=== PATIENT | male | born 1940 | race African-American/Black ===

== ENCOUNTER 2019-02-22 15:19 | Inpatient (IN) | payer OTHER ==
[~2019-02-22] VITALS: Ht 167.6 cm; Wt 61.7 kg
[2019-02-22] MEDS ORDERED: VANCOMYCIN 1 G PREMIX 200 ML IV ONE (15:45)
[2019-02-22] MEDS ORDERED: PIPERACILLIN/TAZ 3.375G PREMIX 50 ML IV ONE (15:45)
[2019-02-22] MEDS ORDERED: SODIUM CHLORIDE 0.9% 1000ML BAG (SEPSIS BOLUS) IV ONE (15:45)
[2019-02-22 16:27] LABS: HEMATOCRIT. 25.2 % (42.0-52.0); HEMOGLOBIN. 8.3 g/dL (14.0-18.0); MEAN CORPUSCULAR HEMOGLOBIN 34.3 pg (28.0-32.0); MEAN CORPUSCULAR VOLUME 103.9 fL (80.0-94.0); MEAN PLATELET VOLUME 8.1 fl (7.4-10.4); PLATELET 263 x1000/uL (130-400); RED BLOOD CELL COUNT 2.43 mill/uL (4.7-6.1)
[2019-02-22 16:32] LABS: CHLORIDE 109 mEq/L (98-107)
[2019-02-22 16:39] LABS: PARTIAL THROMBOPLASTIN TIME 26.4 sec (23.4-31.0); PROTHROMBIN TIME 10.7 sec (9.6-11.0)
[2019-02-22] MEDS ORDERED: ENOXAPARIN 40MG/0.4ML SYR SUBCUT ONE (17:45)
[2019-02-22] MEDS ORDERED: ASPIRIN 325MG EC TABLET PO ONE (17:45)
[2019-02-22 18:20] LABS: PLATELET ESTIMATE NORMAL
[2019-02-22] MEDS ORDERED: ONDANSETRON HCL 4MG/2ML INJ IV PRN (19:15)
[2019-02-22] MEDS ORDERED: ACETAMINOPHEN 325MG TABLET PO PRN (19:15)
[2019-02-22] MEDS ORDERED: CLONIDINE 0.1MG TABLET PO PRN (19:15)
[2019-02-22] MEDS ORDERED: NA PHOS,M-B/NA PHOS,DI-BA ENEMA 118ML PR PRN (19:15)
[2019-02-22] MEDS ORDERED: MORPHINE SULFATE 2 MG/ML CPJ (NOT FOR IM USE) IV PRN (19:15)
[2019-02-22] MEDS ORDERED: MAGNESIUM/ALUMINUM HYDROXIDE/SIMETHICONE 30ML UDC PO PRN (19:15)
[2019-02-22] MEDS ORDERED: GUAIFENESIN 200MG/10ML SUGAR FREE UDC PO PRN (19:15)
[2019-02-22] MEDS ORDERED: ENOXAPARIN 40MG/0.4ML SYR SUBCUT SCH (19:15)
[2019-02-22] MEDS ORDERED: TRAMADOL 50MG TABLET PO PRN (19:15)
[2019-02-22] MEDS ORDERED: DOCUSATE SODIUM 100MG CAPSULE PO PRN (19:15)
[2019-02-22] MEDS ORDERED: PIPERACILLIN/TAZ 3.375G PREMIX 50 ML IV SCH (19:15)
[2019-02-22 20:36] LABS: FOLIC ACID (FOLATE) SERUM 11.9 ng/mL (>5.38)
[2019-02-22 22:30] VITALS: BP 118/68
[2019-02-22 22:52] VITALS: BP 118/68
[2019-02-22] MEDS: SODIUM CHLORIDE 0.9% 1,000 ML IV SCH (23:38)
[2019-02-22] MEDS: ZOLPIDEM TARTRATE 5MG TABLET PO PRN (23:54)
[2019-02-22] MEDS: PIPERACILLIN/TAZOBACTAM 2.25 G in DEXTROSE 5% WATER 50 ML IV SCH (23:54)
[2019-02-23] VITALS: BP 136/61
[2019-02-23] MEDS: VANCOMYCIN 750 MG PREMIX 150 ML IV SCH ×2 (01:35→18:12)
[2019-02-23 02:05] LABS: CREATINE KINASE 303 IU/L (39-308)
[2019-02-23 04:00] VITALS: BP 140/57
[2019-02-23 06:40] LABS: CREATINE KINASE 355 IU/L (39-308)
[2019-02-23] MEDS: ENOXAPARIN 30MG/0.3ML SYR SUBCUT SCH (08:06)
[2019-02-23] MEDS: FAMOTIDINE 20MG TABLET PO SCH (08:07)
[2019-02-23] MEDS: ASCORBIC ACID 500 MG TABLET PO SCH ×2 (08:07→20:21)
[2019-02-23] MEDS: ASPIRIN 81MG EC TABLET PO SCH (08:07)
[2019-02-23] MEDS: ZINC SULFATE 220 MG ( 50 ) CAPSULE PO SCH (08:07)
[2019-02-23] MEDS: PIPERACILLIN/TAZOBACTAM 2.25 G in DEXTROSE 5% WATER 50 ML IV SCH ×3 (08:07→23:37)
[2019-02-23 08:08] VITALS: BP 113/73
[2019-02-23 11:37] VITALS: BP 130/42
[2019-02-23 15:36] VITALS: BP 90/44
[2019-02-23] MEDS: SODIUM CHLORIDE 0.9% 1,000 ML IV SCH (15:59)
[2019-02-23 20:00] VITALS: BP 120/50
[2019-02-24] VITALS (7 sets, daily range): BP systolic 102–151; BP diastolic 43–69
[2019-02-24] MEDS: SODIUM CHLORIDE 0.9% 1,000 ML IV SCH ×2 (01:25→09:03)
[2019-02-24] MEDS: ASPIRIN 81MG EC TABLET PO SCH (08:14)
[2019-02-24] MEDS: FAMOTIDINE 20MG TABLET PO SCH (08:14)
[2019-02-24] MEDS: ENOXAPARIN 30MG/0.3ML SYR SUBCUT SCH (08:14)
[2019-02-24] MEDS: PIPERACILLIN/TAZOBACTAM 2.25 G in DEXTROSE 5% WATER 50 ML IV SCH ×3 (08:14→23:14)
[2019-02-24] MEDS: ZINC SULFATE 220 MG ( 50 ) CAPSULE PO SCH (08:14)
[2019-02-24] MEDS: ASCORBIC ACID 500 MG TABLET PO SCH ×2 (08:14→20:06)
[2019-02-24] MEDS: VANCOMYCIN 1 G PREMIX 200 ML IV SCH (11:31)
[2019-02-24] MEDS: ZOLPIDEM TARTRATE 5MG TABLET PO PRN (20:06)
[2019-02-25] VITALS: BP 158/77
[2019-02-25 04:00] VITALS: BP 113/60
[2019-02-25] MEDS: SODIUM CHLORIDE 0.9% 1,000 ML IV SCH ×2 (04:17→16:27)
[2019-02-25] MEDS: VANCOMYCIN 1 G PREMIX 200 ML IV SCH (05:33)
[2019-02-25 08:00] VITALS: BP 135/50
[2019-02-25] MEDS: PIPERACILLIN/TAZOBACTAM 2.25 G in DEXTROSE 5% WATER 50 ML IV SCH ×2 (08:48→16:27)
[2019-02-25 09:53] LABS: INR 1.1; PARTIAL THROMBOPLASTIN TIME 36.4 sec (23.4-31.0); PROTHROMBIN TIME 11.5 sec (9.6-11.0)
[2019-02-25] MEDS: FAMOTIDINE 20MG TABLET PO SCH (10:28)
[2019-02-25] MEDS: ASCORBIC ACID 500 MG TABLET PO SCH ×2 (10:28→20:22)
[2019-02-25] MEDS: ASPIRIN 81MG EC TABLET PO SCH (10:28)
[2019-02-25] MEDS: ENOXAPARIN 30MG/0.3ML SYR SUBCUT SCH (10:29)
[2019-02-25] MEDS: ZINC SULFATE 220 MG ( 50 ) CAPSULE PO SCH (10:31)
[2019-02-25 12:00] VITALS: BP 128/50
[2019-02-25 12:21] LABS: HEMATOCRIT 22.2 % (42.0-52.0); HEMOGLOBIN 7.2 g/dL (14.0-18.0)
[2019-02-25 16:00] VITALS: BP 147/57
[2019-02-25 16:12] LABS: CREATINE KINASE 224 IU/L (39-308)
[2019-02-25] MEDS: HALOPERIDOL LACTATE 5MG/ML VIAL IM PRN (16:20)
[2019-02-25 20:00] VITALS: BP 155/73
[2019-02-25] MEDS: ZOLPIDEM TARTRATE 5MG TABLET PO PRN (20:22)
[2019-02-26] VITALS (7 sets, daily range): BP systolic 96–155; BP diastolic 46–64
[2019-02-26] MEDS: PIPERACILLIN/TAZOBACTAM 2.25 G in DEXTROSE 5% WATER 50 ML IV SCH ×3 (00:42→15:54)
[2019-02-26] MEDS: VANCOMYCIN 1 G PREMIX 200 ML IV SCH ×2 (01:08→18:51)
[2019-02-26] MEDS: SODIUM CHLORIDE 0.9% 1,000 ML IV SCH ×2 (05:50→21:17)
[2019-02-26 06:41] LABS: BASOPHILS % 2.2 % (0.0-2.0); EOSINOPHILS % 0.5 % (0.0-5.0); HEMATOCRIT. 24.2 % (42.0-52.0); HEMOGLOBIN. 7.9 g/dL (14.0-18.0); LYMPHOCYTES % 12.9 % (20.0-50.0); MEAN CORPUSCULAR HEMOGLOBIN 34.2 pg (28.0-32.0); MEAN CORPUSCULAR VOLUME 104.7 fL (80.0-94.0); MEAN PLATELET VOLUME 9.4 fl (7.4-10.4); NEUTROPHILS % 78.4 % (40.0-76.0); PLATELET 205 x1000/uL (130-400); RED BLOOD CELL COUNT 2.31 mill/uL (4.7-6.1); RED CELL DISTRIBUTION WIDTH 16.2 % (11.6-14.6)
[2019-02-26 07:06] LABS: CHLORIDE 113 mEq/L (98-107)
[2019-02-26 07:31] LABS: LDL CHOLESTEROL 32 mg/dL (5-100)
[2019-02-26 07:33] LABS: CREATINE KINASE 267 IU/L (39-308)
[2019-02-26 07:38] LABS: HDL CHOLESTEROL 81 mg/dL (40-59)
[2019-02-26 07:50] LABS: CREATINE KINASE MB FRACTION 10.8 ng/mL (0.5-3.6)
[2019-02-26] MEDS: ENOXAPARIN 30MG/0.3ML SYR SUBCUT SCH (08:10)
[2019-02-26] MEDS: ZINC SULFATE 220 MG ( 50 ) CAPSULE PO SCH (08:10)
[2019-02-26] MEDS: ASPIRIN 81MG EC TABLET PO SCH (08:10)
[2019-02-26] MEDS: ASCORBIC ACID 500 MG TABLET PO SCH ×2 (08:10→21:17)
[2019-02-26] MEDS: FAMOTIDINE 20MG TABLET PO SCH (08:10)
[2019-02-26] MEDS ORDERED: NA PHOS,M-B/NA PHOS,DI-BA ENEMA 118ML PR PRN (10:15)
[2019-02-26] MEDS ORDERED: LACTULOSE 20G/30ML UDC PO NR (10:32)
[2019-02-26] MEDS: HALOPERIDOL LACTATE 5MG/ML VIAL IM PRN (14:10)
[2019-02-26] MEDS ORDERED: MAGNESIUM 1 G PREMIX 100 ML IV SCH (15:00)
[2019-02-26] MEDS: AMLODIPINE 2.5MG TABLET PO SCH ×2 (15:53→21:17)
[2019-02-26] MEDS: ZOLPIDEM TARTRATE 5MG TABLET PO PRN (21:17)
[2019-02-27] MEDS: PIPERACILLIN/TAZOBACTAM 2.25 G in DEXTROSE 5% WATER 50 ML IV SCH ×3 (02:34→17:12)
[2019-02-27 04:35] VITALS: BP 185/70
[2019-02-27 04:45] VITALS: BP 155/69
[2019-02-27 07:00] VITALS: BP 124/66
[2019-02-27 07:05] LABS: BASOPHILS % 0.8 % (0.0-2.0); EOSINOPHILS % 0.2 % (0.0-5.0); HEMATOCRIT. 23.4 % (42.0-52.0); HEMOGLOBIN. 7.6 g/dL (14.0-18.0); LYMPHOCYTES % 8.9 % (20.0-50.0); MEAN CORPUSCULAR HEMOGLOBIN 33.5 pg (28.0-32.0); MEAN CORPUSCULAR VOLUME 103.7 fL (80.0-94.0); MEAN PLATELET VOLUME 9.4 fl (7.4-10.4); MONOCYTES % 5.4 % (2.0-8.0); NEUTROPHILS % 84.7 % (40.0-76.0); PLATELET 214 x1000/uL (130-400); RED BLOOD CELL COUNT 2.26 mill/uL (4.7-6.1); RED CELL DISTRIBUTION WIDTH 16.6 % (11.6-14.6)
[2019-02-27 07:06] LABS: CREATINE KINASE 260 IU/L (39-308)
[2019-02-27 07:07] LABS: CREATINE KINASE MB FRACTION 14.4 ng/mL (0.5-3.6)
[2019-02-27 08:00] VITALS: BP 115/75
[2019-02-27] MEDS: AMLODIPINE 2.5MG TABLET PO SCH ×2 (09:00→21:30)
[2019-02-27] MEDS: ZINC SULFATE 220 MG ( 50 ) CAPSULE PO SCH (10:22)
[2019-02-27] MEDS: ASPIRIN 81MG EC TABLET PO SCH (10:22)
[2019-02-27] MEDS: ASCORBIC ACID 500 MG TABLET PO SCH ×2 (10:22→21:30)
[2019-02-27] MEDS: FAMOTIDINE 20MG TABLET PO SCH (10:22)
[2019-02-27] MEDS: SODIUM CHLORIDE 0.9% 1,000 ML IV SCH (10:24)
[2019-02-27] MEDS: ENOXAPARIN 30MG/0.3ML SYR SUBCUT SCH (10:24)
[2019-02-27] MEDS: VANCOMYCIN 1 G PREMIX 200 ML IV SCH (11:24)
[2019-02-27 12:00] VITALS: BP 107/72
[2019-02-28] VITALS: BP 168/63
[2019-02-28] MEDS: SODIUM CHLORIDE 0.9% 1,000 ML IV SCH ×2 (00:06→11:47)
[2019-02-28] MEDS: PIPERACILLIN/TAZOBACTAM 2.25 G in DEXTROSE 5% WATER 50 ML IV SCH ×3 (00:15→15:20)
[2019-02-28 04:00] VITALS: BP 138/82
[2019-02-28] MEDS: VANCOMYCIN 1 G PREMIX 200 ML IV SCH ×2 (05:35→21:51)
[2019-02-28 08:00] VITALS: BP 159/99
[2019-02-28] MEDS: ASPIRIN 81MG EC TABLET PO SCH (09:06)
[2019-02-28] MEDS: AMLODIPINE 2.5MG TABLET PO SCH ×2 (09:06→20:10)
[2019-02-28] MEDS: FAMOTIDINE 20MG TABLET PO SCH (09:06)
[2019-02-28] MEDS: ENOXAPARIN 30MG/0.3ML SYR SUBCUT SCH (09:06)
[2019-02-28] MEDS: ZINC SULFATE 220 MG ( 50 ) CAPSULE PO SCH (09:06)
[2019-02-28] MEDS: ASCORBIC ACID 500 MG TABLET PO SCH ×2 (09:06→20:10)
[2019-02-28] MEDS ORDERED: HYDRALAZINE 20MG/ML VIAL IV PRN (11:30)
[2019-02-28 12:00] VITALS: BP 99/78
[2019-02-28] MEDS: IRON SUCROSE COMPLEX 100 MG/5 ML ML IV SCH (14:35)
[2019-02-28 16:00] VITALS: BP 123/70
[2019-02-28 20:00] VITALS: BP 174/95
[2019-02-28] MEDS: IPRATROPIUM/ALBUTEROL 0.5-3(2.5)MG/3ML NEB NEB PRN (21:31)
[2019-03-01] MEDS: PIPERACILLIN/TAZOBACTAM 2.25 G in DEXTROSE 5% WATER 50 ML IV SCH ×2 (00:01→09:14)
[2019-03-01 00:40] VITALS: BP 101/86
[2019-03-01] MEDS: SODIUM CHLORIDE 0.9% 1,000 ML IV SCH (01:44)
[2019-03-01 04:00] VITALS: BP 96/74
[2019-03-01 07:12] LABS: HEMATOCRIT. 21.1 % (42.0-52.0); MEAN CORPUSCULAR HEMOGLOBIN 33.5 pg (28.0-32.0); MEAN CORPUSCULAR VOLUME 100.9 fL (80.0-94.0); MEAN PLATELET VOLUME 9.6 fl (7.4-10.4); PLATELET 175 x1000/uL (130-400); RED BLOOD CELL COUNT 2.09 mill/uL (4.7-6.1); RED CELL DISTRIBUTION WIDTH 16.8 % (11.6-14.6)
[2019-03-01 07:14] LABS: CHLORIDE 112 mEq/L (98-107)
[2019-03-01 08:00] VITALS: BP 151/78
[2019-03-01] MEDS: ENOXAPARIN 30MG/0.3ML SYR SUBCUT SCH (08:10)
[2019-03-01] MEDS: ZINC SULFATE 220 MG ( 50 ) CAPSULE PO SCH (09:15)
[2019-03-01] MEDS: FAMOTIDINE 20MG TABLET PO SCH (09:15)
[2019-03-01] MEDS: ASPIRIN 81MG EC TABLET PO SCH (09:15)
[2019-03-01] MEDS: AMLODIPINE 2.5MG TABLET PO SCH (09:15)
[2019-03-01] MEDS: ASCORBIC ACID 500 MG TABLET PO SCH (09:15)
[2019-03-01] MEDS: IPRATROPIUM/ALBUTEROL 0.5-3(2.5)MG/3ML NEB NEB PRN (10:29)
[2019-03-01 11:40] LABS: NUCLEATED RED BLOOD CELLS 3 /100 WBC
[2019-03-01 11:41] LABS: PLATELET ESTIMATE NORMAL
[2019-03-01 12:00] VITALS: BP 144/77
[2019-03-01] MEDS: IRON SUCROSE COMPLEX 100 MG/5 ML ML IV SCH (13:02)
[2019-03-01 13:55] VITALS: BP 98/44
== END 2019-03-01 16:09 | DRG 871 ==
LOC: ER 15:19 → EDBD 19:05 → 7WST 19:05 → SUPCPDRO 19:13 → ENRESERV 20:11 → CANRESERV 20:11 → ENRESERV 20:44 → 7WST 02-24 15:37
PROVIDERS: ADMIT Internal Medicine; ATTEND Internal Medicine
DX: A41.9 Sepsis, unspecified organism (principal); G92 Toxic encephalopathy; N17.0 Acute kidney failure with tubular necrosis; I42.9 Cardiomyopathy, unspecified; I96 Gangrene, not elsewhere classified; L97.419 Non-pressure chronic ulcer of right heel and midfoot with unspecified severity; M86.8X7 Other osteomyelitis, ankle and foot; R64 Cachexia; D63.8 Anemia in other chronic diseases classified elsewhere; I27.20 Pulmonary hypertension, unspecified; I69.320 Aphasia following cerebral infarction; I73.9 Peripheral vascular disease, unspecified; I10 Essential (primary) hypertension; R74.0 Nonspecific elevation of levels of transaminase and lactic acid dehydrogenase [LDH]; L97.529 Non-pressure chronic ulcer of other part of left foot with unspecified severity; R00.1 Bradycardia, unspecified; I95.9 Hypotension, unspecified; D50.9 Iron deficiency anemia, unspecified; Z66 Do not resuscitate; I08.1 Rheumatic disorders of both mitral and tricuspid valves; S51.812A Laceration without foreign body of left forearm, initial encounter; X58.XXXA Exposure to other specified factors, initial encounter; F03.90 Unspecified dementia, unspecified severity, without behavioral disturbance, psychotic disturbance, mood disturbance, and anxiety; Z79.899 Other long term (current) drug therapy; Y93.89 Activity, other specified; Y92.89 Other specified places as the place of occurrence of the external cause; Y99.8 Other external cause status; Z78.1 Physical restraint status
CPT/HCPCS: 36415; 71045; 73620; 80048; 80061; 80202; 82270; 82550; 82553; 82607; 82746; 83036; 83540; 83550; 83605; 83735; 83880; 84134; 84145; 84443; 84484; 85014; 85018; 85049; 85379; 93005; 93306; 93923; 94640; 99285; J1630; J1650; J2543; J3370; J3475; J7030; J7060; J7620